=== PATIENT | female | born 2000 | race Caucasian/White ===

== ENCOUNTER 2021-05-24 20:00 | Observation (INO) | payer OTHER ==
[~2021-05-24] VITALS: Ht 165.1 cm; Wt 77.1 kg
[2021-05-24 21:28] VITALS: BP 110/52
== END 2021-05-24 21:23 | disposition home or self-care (01) ==
LOC: MLD 20:00
PROVIDERS: ADMIT Obstetrics & Gynecology; ATTEND Obstetrics & Gynecology
DX: O46.93 Antepartum hemorrhage, unspecified, third trimester (principal); Z3A.28 28 weeks gestation of pregnancy
CPT/HCPCS: 59025; 81000; G0378